=== PATIENT | female | born 1990 | race Caucasian/White ===

== ENCOUNTER 2021-02-05 04:58 | Inpatient (IN) ==
[2021-02-05] MEDS ORDERED: OXYTOCIN 30 UNITS/500 ML BAG IV PRN ×2 (05:41→10:29)
[2021-02-05] MEDS ORDERED: LACTATED RINGER'S 1,000 ML IV PRN (05:41)
--- NOTE | 2021-02-05 05:58 | History & Physical Report ---
Date of Service February 05, 2021 Assessment & Plan (1) History of deep vein thrombosis: (2) : Plan: Admit in labor plans for epidural History of Present Illness Chief Complaint: term in labor Primary Care Provider: Heavenly Wagner DO 30 F P1001 at 38.6 weeks presents in labor at 4 cm Allergies Allergy/AdvReac Type Severity Reaction Status Date / Time Penicillins Allergy Mild Hives Verified 02/05/21 05:16 bee venom protein (honey bee) Allergy Hives Verified 02/05/21 05:16 Home Medications Medication Instructions Recorded Confirmed Type pantoprazole 40 mg tablet,delayed 40 mg PO DAILY 01/09/21 02/05/21 History release (Protonix) sertraline 50 mg tablet (Zoloft) 75 mg PO DAILY 01/09/21 02/05/21 History heparin (porcine) 5,000 unit/0.5 10,000 unit BID 01/27/21 02/05/21 History mL injection syringe cetirizine 10 mg tablet (Zyrtec) 10 mg PO DAILY 02/05/21 02/05/21 History prenat.vits,barron,[id number]-[id number] 1 tab PO DAILY 02/05/21 02/05/21 History Patient History Medical History (Updated 02/05/21 @ 05:57 by Davidson Winn MD) Anxiety and depression History of deep vein thrombosis (10/2009) LLE Migraine (03/05/11) Surgical History H/O wisdom tooth extraction S/P arthroscopy of shoulder L shoulder S/P cholecystectomy S/P knee surgery b/l knee, quinn S/P right knee arthroscopy meniscus repair Family History Mother Migraine headache Cerebral aneurysm Family/Other Breast cancer maternal great grandmother Father No problems noted. Grandfather (Maternal) Diabetes Grandfather (Paternal) Diabetes Denies family history of Ovarian cancer Prostate cancer Myocardial infarction Colorectal cancer Social History Smoking Status: Never smoker Tobacco Type: Cigarettes Cigarettes Per Day: ON-OFF; Second Hand Exposure: No; Hx Alcohol Use: No Hx Substance Use: No Preferred Language: Moroccan Communication Ability: Effective Visual Impairment: No Limitations Hearing Ability: Normal Paper Plate Machine Tender Required: No Beliefs That Will Affect Care: None marital status: Current Living Situation: Spouse and Family Current Living Situation Comment: tanya and son current occupational status: employed current occupation: structural analysis engineer How many Children do You have: 1 Other Information That Helps Us Care for You: No Feels Safe at Home: Yes Safety Concerns: Feels Safe At This Time Childhood Exposure to Second-Hand Smoke: Yes caffeine: Yes (1 cup of coffee per day.) during the past year weight has: remained stable Dental Care, Regularly: Yes Physical Activity Frequency: Daily Seatbelt Use: always Sunscreen Use: Yes Assistive Devices: Contacts and Glasses OB History x1 [employer]IST History DVT post OCP's now on Heparin Review of Systems All systems reviewed & are unremarkable except as noted in HPI & below Physical Exam Constitutional: WD/WN, vitals as above comfortable Eyes: PERRL, conjunctivae normal, anicteric sclerae Cardiovascular: RRR, no murmur, no edema Skin: no rashes, warm and dry Neurologic: patellar DTR's 2+ bilat, sensation intact Psychiatric: A+Ox3, euthymic affect Genitourinary: OB Exam Abdomen: + fundal height and + vertex Manual OB Exam: + cervical dilation 4 cm, + cervical effacement 70% and + station -2 OB Exam Monitor Tracing: + external FHT monitor used, + external uterine monitor used, + category I and + normal FHT variability Results & Data ([facility]) Vital Signs (Past 12 Hours) Vital Signs Pulse BP 02/05/21 05:45 71 133/75 02/05/21 05:34 55 L 137/66 02/05/21 05:24 66 139/71 02/05/21 05:13 61 150/71 H Code Status & VTE Plan VTE Prophylaxis Plan VTE Prophylaxis will be ordered: Yes Reason for no VTE drug order: Treatment not indicated Monitoring External Monitor Cat 1
[2021-02-05 06:05] LABS: Hematocrit (blood only) 36.2 % (37-47); Hemoglobin 11.8 g/dL (12.0-16.0); Mean Corpuscular Hemoglobin 25.5 pg (25-34); Mean Corpuscular Volume 78.4 fL (80-100); Mean Platelet Volume 10.3 fL (7.4-10.4); Platelet Count 315 K/uL (130-400); RDW Standard Deviation 37.2 fL (36.4-46.3); Red Blood Count 4.62 M/uL (4.2-5.4); White Blood Count 14.12 K/uL (4.8-10.8)
[2021-02-05] MEDS ORDERED: fentaNYL 2MCG/ML ROPIVACAINE 1.25MG/ML 100 ML BAG EPI ONE (06:16)
[2021-02-05] MEDS ORDERED: fentaNYL citrate 100 MCG/2 ML VIAL ONE (06:16)
[2021-02-05] MEDS ORDERED: SODIUM CHLORIDE 0.9% INJ 10 ML VIAL ONE (06:16)
[2021-02-05] MEDS ORDERED: ePHEDrine sulfate 50 MG/ML AMP ONE (06:16)
[2021-02-05] MEDS ORDERED: BUPIVACAINE 0.25% 30 ML VIAL ONE (06:16)
[2021-02-05 06:20] LABS: Mean Corpuscular Hgb Conc 32.6 g/dL (32-36)
--- NOTE | 2021-02-05 07:43 | Anesthesiology Consultation ---
Date of Service February 05, 2021 Assessment & Plan (1) Encounter for pre-operative examination: Chart Review Chart Review: Acceptable Risk for Labor Epidural History Height/Weight Height: 5 ft 11 in Weight: 132.449 kg Allergies Allergy/AdvReac Type Severity Reaction Status Date / Time Penicillins Allergy Mild Hives Verified 02/05/21 05:16 bee venom protein (honey bee) Allergy Hives Verified 02/05/21 05:16 Medications Home Medications Medication Instructions Recorded Confirmed Last Taken pantoprazole 40 mg tablet,delayed 40 mg PO DAILY 01/09/21 02/05/21 02/04/21 08:00 release (Protonix) sertraline 50 mg tablet (Zoloft) 75 mg PO DAILY 01/09/21 02/05/21 02/04/21 08:00 heparin (porcine) 5,000 unit/0.5 10,000 unit BID 01/27/21 02/05/21 02/04/21 20:00 mL injection syringe cetirizine 10 mg tablet (Zyrtec) 10 mg PO DAILY 02/05/21 02/05/21 02/04/21 20:00 prenat.vits,barrno,[id number]-[id number] 1 tab PO DAILY 02/05/21 02/05/21 02/04/21 08:00 Active Medications Generic Name Dose Route Start Last Admin Trade Name Freq PRN Reason Stop Dose Admin Lactated Ringer's 1,000 mls @ 125 mls/hr 02/05/21 05:41 02/05/21 06:42 Lr IV 02/07/21 05:40 125 mls/hr .Q8H PRN Infusion L&D Protocol Protocol Past Medical History Medical History (Updated 02/05/21 @ 07:42 by Michael Cutler MD) Anxiety and depression History of deep vein thrombosis (10/2009) LLE Migraine (03/05/11) Past Family History Family History Mother Migraine headache Cerebral aneurysm Family/Other Breast cancer maternal great grandmother Father No problems noted. Grandfather (Maternal) Diabetes Grandfather (Paternal) Diabetes Denies family history of Ovarian cancer Prostate cancer Myocardial infarction Colorectal cancer Past Surgical History Surgical History H/O wisdom tooth extraction S/P arthroscopy of shoulder L shoulder S/P cholecystectomy S/P knee surgery b/l knee, quinn S/P right knee arthroscopy meniscus repair Social History Smoking Status: Never smoker Smoking cigarettes per day: ON-OFF Hx Alcohol Use: No Hx Substance Use: No Physical Exam Vital Signs Last Vital Signs Temp 36.5 C 02/05/21 05:14 Pulse 67 02/05/21 07:30 Resp 18 02/05/21 05:14 BP 133/75 02/05/21 05:45 Pulse Ox 97 02/05/21 07:30 Testing Laboratory Results 02/05/21 05:51
[2021-02-05] MEDS ORDERED: NALOXONE HCL 0.4 MG/1 ML VIAL/CARP IV PRN (08:10)
[2021-02-05] MEDS ORDERED: ePHEDrine sulfate 50 MG/ML AMP IV PRN (08:10)
[2021-02-05] MEDS ORDERED: NALOXONE HCL 1 MG in SODIUM CHLORIDE 0.9% 1000ML 1,000 ML IV PRN (08:10)
[2021-02-05] MEDS ORDERED: fentaNYL 2MCG/ML ROPIVACAINE 1.25MG/ML 100 ML BAG EPI PRN (08:10)
[2021-02-05] MEDS ORDERED: ONDANSETRON INJ 2 MG/ML 2 ML VIAL IV PRN (08:10)
[2021-02-05] MEDS ORDERED: DIPHTHERIA/TETANUS/PERTUSSIS 0.5 ML SYR/VIAL IM ONE (10:29)
[2021-02-05] MEDS ORDERED: ACETAMINOPHEN 325 MG TAB PO PRN (10:29)
[2021-02-05] MEDS ORDERED: MEASLES, MUMPS & RUBELLA VIRUS VIAL SQ ONE (10:29)
[2021-02-05] MEDS ORDERED: BENZOCAINE 20% AER SPR 82.5 GM CAN EXT PRN (10:29)
[2021-02-05] MEDS ORDERED: bisacodyL 10 MG SUPP PR PRN (10:29)
[2021-02-05] MEDS ORDERED: SUPERCREAM 0.870% 15 GM JAR EXT PRN (10:29)
[2021-02-05] MEDS ORDERED: HYDROCORTISONE ACETATE 25 MG SUPP PR PRN (10:29)
--- NOTE | 2021-02-05 10:35 | Delivery Summary ---
Vaginal Delivery Summary Date of Service February 05, 2021 Vaginal Delivery Summary Patient was found to be fully dilated and desire to push. She pushed through only 2 contractions and delivered the head without difficulty. There was a loose nuchal cord around the neck x1 which was reduced. The shoulders were delivered with minimal traction and the baby was handed off to the mother that her mouth and nose were suctioned. Cord was clamped x2 and cut. The baby was handed to the waiting pediatric team. Vagina and perineum were checked for lacerations and they were intact. The placenta was found to be in the vagina, delivered spontaneously as intact and complete. The uterus was explored and found to be empty. Lower segment was cleared of all clots and debris's. EBL was 200 mL. The mom and baby tolerated procedure well. Sponge and instrument count was correct x2. The baby was a viable female infant, Apgars 6/9 and weight is pending. No complications happened and I was present during whole procedure.
--- NOTE | 2021-02-05 11:19 | Anesthesia Procedure Note ---
Date of Service February 05, 2021 Anesthesia Post Epidural Note Vital Signs Vital Signs: Temp Pulse Resp BP Pulse Ox 36.5 C 67 18 140/65 87 L 02/05/21 05:14 02/05/21 11:17 02/05/21 10:45 02/05/21 11:11 02/05/21 11:17 Notes Mental Status: alert / awake / arousable and participated in evaluation Nausea / Vomiting: adequately controlled Pain: adequately controlled Airway Patency, RR, SpO2: stable & adequate BP & HR: stable & adequate Hydration State: stable & adequate Neuraxial Anesthesia: was administered and sensory block is resolving Anesthetic Complications: no major complications apparent Epidural: Removed without complications and With tip intact
[2021-02-05] MEDS: IBUPROFEN 600 MG TAB PO PRN ×2 (16:00→20:09)
[2021-02-05] MEDS ORDERED: ENOXAPARIN INJ 40 MG/0.4 ML SYR SQ ONE (17:41)
[2021-02-05 18:55] LABS: Creatinine Clr Calc Pharmacy 126.5 ml/min; Est GFR (African American) 89.7 ml/min; Est GFR (Non-African American) 77.4 ml/min
[2021-02-05] MEDS: DOCUSATE SODIUM 100 MG CAP PO SCH (20:09)
[2021-02-05] MEDS: ENOXAPARIN INJ 40 MG/0.4 ML SYR SQ SCH (22:48)
[2021-02-06] MEDS: IBUPROFEN 600 MG TAB PO PRN ×2 (03:58→10:56)
[2021-02-06] MEDS ORDERED: PRENATAL VITAMIN 1 TAB PO SCH (08:00)
[2021-02-06] MEDS ORDERED: FERROUS SULFATE 325 MG TAB PO SCH (08:00)
[2021-02-06 08:15] LABS: Hematocrit (blood only) 34.1 % (37-47); Hemoglobin 11.1 g/dL (12.0-16.0); Mean Corpuscular Hemoglobin 25.9 pg (25-34); Mean Corpuscular Hgb Conc 32.6 g/dL (32-36); Mean Corpuscular Volume 79.5 fL (80-100); Mean Platelet Volume 10.6 fL (7.4-10.4); Platelet Count 278 K/uL (130-400); RDW Coefficient of Variation 13.2 % (11.5-14.5); Red Blood Count 4.29 M/uL (4.2-5.4)
--- NOTE | 2021-02-06 08:19 | Obstetrical Progress Note ---
Date of Service February 06, 2021 Assessment & Plan (1) : (2) History of deep vein thrombosis: discharged home continue Lovenox 6 weeks post Subjective Ambulation: ambulating normally Voiding: no voiding problems Passing Gas:: Yes Diet Tolerance:: regular diet Lochia:: Small Feeding Type:: breast feeding Current Pain Level(1-10): 0 doing well plans for d/c to continue Lovenox for 6 weeks Physical Exam Constitutional WD/WN, vitals as above comfortable fundus firm no abd pain no edema neg Georgina's for d/c home Results & Data ([facility]) Vital Signs (Past 12 Hours) Vital Signs Temp Pulse Resp BP 02/06/21 04:00 36.3 C L 66 18 141/81 H 02/05/21 23:50 36.6 C 67 18 137/84 Laboratory Results Laboratory Results - last 72 hr 02/05/21 02/05/21 02/05/21 05:51 05:51 18:21 WBC 14.12 H RBC 4.62 Hgb 11.8 L Hct 36.2 L MCV 78.4 L MCH 25.5 MCHC 32.6 RDW Std Deviation 37.2 RDW Coeff of Adela 13.0 Plt Count 315 MPV 10.3 Creatinine 0.98 Est Cr Clr Drug Dosing 126.5 Est GFR ( Amer) 89.7 Est GFR (Non-Af Amer) 77.4 SARS-CoV-2, RNA, NAAT Blood Type A Positive Antibody Screen NEGATIVE 02/05/21 02/06/21 Unknown 07:42 WBC 12.90 H RBC 4.29 Hgb 11.1 L Hct 34.1 L MCV 79.5 L MCH 25.9 MCHC 32.6 RDW Std Deviation 38.0 RDW Coeff of Adela 13.2 Plt Count 278 MPV 10.6 H Creatinine Est Cr Clr Drug Dosing Est GFR ( Amer) Est GFR (Non-Af Amer) SARS-CoV-2, RNA, NAAT NEGATIVE Blood Type Antibody Screen
[2021-02-06] MEDS: ENOXAPARIN INJ 40 MG/0.4 ML SYR SQ SCH (08:37)
[2021-02-06] MEDS: DOCUSATE SODIUM 100 MG CAP PO SCH (08:37)
[2021-02-06] MEDS ORDERED: SERTRALINE HCL 50 MG TABLET PO SCH (09:00)
[2021-02-06] MEDS ORDERED: bisacodyL 5 MG TABEC PO SCH (20:00)
== END 2021-02-06 12:30 | disposition home or self-care (01) | DRG 807 ==
LOC: OPB 04:58 → 4S1 05:04 → 4S2 12:29